=== PATIENT | female | born 1955 | race Caucasian/White ===

== ENCOUNTER 2018-09-21 09:43 | Outpatient (CLI) | payer OTHER | END 2018-09-21 09:44 | disposition home or self-care (01) | LOC: BICMAMMO 09:43 | PROVIDERS: ATTEND Family Medicine | DX: Z12.31 Encounter for screening mammogram for malignant neoplasm of breast (principal); Z80.3 Family history of malignant neoplasm of breast; Z85.828 Personal history of other malignant neoplasm of skin | CPT/HCPCS: 77063; 77067 ==

== ENCOUNTER 2019-09-28 08:37 | Outpatient (CLI) | payer OTHER ==
--- NOTE | 2019-09-28 09:08 | MMO ---
Bilateral MAMMO Bilat Screen [facility]. CLINICAL HISTORY: Patient is 64 years old and is seen for screening. The patient has a history of Skin cancer. VIEWS: The views performed were: bilateral craniocaudal with tomosynthesis and bilateral mediolateral oblique with tomosynthesis. FILMS COMPARED: The present examination has been compared to prior imaging studies performed at [facility] on 03/31/2017 and 09/21/2018, and at [facility] on 04/06/2012 and 05/04/2014. This study has been interpreted with the assistance of computer-aided detection. MAMMOGRAM FINDINGS: There are scattered fibroglandular densities. There are no suspicious masses, suspicious calcifications, or new areas of architectural distortion. IMPRESSION: THERE IS NO MAMMOGRAPHIC EVIDENCE OF MALIGNANCY. A ROUTINE FOLLOW-UP MAMMOGRAM IN 1 YEAR IS RECOMMENDED. THE RESULTS OF THIS EXAM WERE SENT TO THE PATIENT. ACR BI-RADS Category 1 - Negative MAMMOGRAPHY NOTE: 1. A negative mammogram report should not delay a biopsy if a dominant of clinically suspicious mass is present. 2. Approximately 10% to 15% of breast cancers are not detected by mammography. 3. Adenosis and dense breasts may obscure an underlying neoplasm. Reported by: EMELIA DICKENS MD Electonically Signed: [id number]
== END 2019-09-28 08:38 | disposition home or self-care (01) ==
LOC: BICMAMMO 08:37
PROVIDERS: ATTEND Family Medicine
DX: Z12.31 Encounter for screening mammogram for malignant neoplasm of breast (principal)
CPT/HCPCS: 77063; 77067

== ENCOUNTER 2020-08-03 07:17 | Outpatient (CLI) | payer MEDICARE, OTHER ==
[2020-08-03 16:11] LABS: #Basophils 0.1 thou/uL (0.0-0.2); #Eosinphils 0.1 thou/uL (0.0-0.7); #Lymphocytes 1.1 thou/uL (1.20-3.40); #Monocytes 0.4 thou/uL (0.11-0.59); #Neutrophils 4.1 thou/uL (1.40-6.50); %Eosinophils 1.3 % (0.0-10.0); %Lymphocytes 19.8 % (21.0-51.0); %Monocytes 6.2 % (0.0-10.0); %Neutrophils 71.8 % (42.0-75.0); Hemoglobin 15.8 g/dL (12.0-16.0); Mean Corpuscular HGB CONC 35.9 g/dL (32.0-36.0); Mean Corpuscular Hemoglobin 34.5 pg (27.0-31.0); Mean Corpuscular Volume 95.9 fL (78.0-98.0); Mean Platelet Volume 7.4 fL (7.4-10.4); Platelet Count 160 thou/uL (130-400); RBC Distribution Width 11.5 % (11.5-14.5); Red Blood Cell (RBC) Count 4.58 mill/uL (4.20-5.40); White Blood Cell (WBC) Count 5.7 thou/uL (4.8-10.8)
[2020-08-03 16:24] LABS: Anion Gap 17 mmol/L (10-20); BUN (Urea Nitrogen) 15 mg/dL (9.8-20.1); Calc. Creatinine Clearance 0 mL/min (70-130); Calcium 9.4 mg/dL (7.8-10.44); Carbon Dioxide 25 mmol/L (23-31); Chloride 102 mmol/L (98-107); Estimated GFR-MDRD 73; Glucose 83 mg/dL (80-115); Potassium 4.5 mmol/L (3.5-5.1); Sodium 139 mmol/L (136-145)
[2020-08-03 16:27] LABS: INR-International Normal Ratio 0.9; Prothrombin Time 11.6 sec (12.0-14.7)
[2020-08-04 14:56] LABS: SARS-CoV-2 MS2 Positive; SARS-CoV-2 N Gene Negative; SARS-CoV-2 S Gene Negative; SARS-CoV-2 by NAA Not Detected (NotDetected); SARS-CoV-2 orf1ab Negative
--- NOTE | 2020-08-05 13:09 | EKG ---
Test Reason : Blood Pressure : / mmHG Vent. Rate : 062 BPM Atrial Rate : 062 BPM P-R Int : 160 ms QRS Dur : 096 ms QT Int : 422 ms P-R-T Axes : 040 016 041 degrees QTc Int : 428 ms Normal sinus rhythm Normal ECG No previous ECGs available Confirmed by ROMEO STORM MD ([id number]) on 08/05/2020 1:09:22 PM Referred By: KALEB Confirmed By:ROMEO STORM MD
== END 2020-08-03 07:18 | disposition home or self-care (01) ==
LOC: LABBT 07:17
PROVIDERS: ATTEND Orthopaedic Surgery
DX: Z01.818 Encounter for other preprocedural examination (principal); Z20.828 Contact with and (suspected) exposure to other viral communicable diseases; M16.12 Unilateral primary osteoarthritis, left hip
CPT/HCPCS: 80048; 85025; 85610; 87081; 93005; U0003; 87635; 93010

== ENCOUNTER 2020-08-07 05:37 | Inpatient (IN) | payer MEDICARE ==
[2020-08-07] MEDS ORDERED: Vancomycin 1.5 GRAM/300 ML BAG ONE (06:09)
[2020-08-07] MEDS ORDERED: Tranexamic Acid 1,000 MG/10 ML VIAL ONE (06:10)
[2020-08-07] MEDS ORDERED: Sodium Chloride 0.9% 100 ML ONE (06:10)
[2020-08-07] MEDS ORDERED: Fentanyl 100 MCG/2 ML VIAL ONE ×3 (06:22→09:25)
[2020-08-07] MEDS ORDERED: Midazolam HCl 2 mg/2 ml Vial ONE ×2 (06:22→06:25)
[2020-08-07] MEDS ORDERED: diphenhydrAMINE 50 MG/ML VIAL IM PRN (07:30)
[2020-08-07] MEDS ORDERED: diphenhydrAMINE 50 MG/ML VIAL IVP PRN (07:30)
[2020-08-07] MEDS ORDERED: HYDROcodone/Acetaminophen 5/325 mg Tablet PO PRN ×2 (07:30)
[2020-08-07] MEDS ORDERED: Bupivacaine 0.25% 10 ML VIAL EPIDURAL PRN (07:30)
[2020-08-07] MEDS ORDERED: Promethazine HCl 25 MG SUPP PR PRN (07:30)
[2020-08-07] MEDS ORDERED: Ondansetron PF 4 MG/2 ML Vial IVP PRN ×2 (07:30→09:50)
[2020-08-07] MEDS ORDERED: Naloxone HCl 0.4 mg/ml Vial IVP PRN (07:30)
[2020-08-07] MEDS ORDERED: Promethazine HCl 25 MG/ML VIAL IM PRN ×3 (07:30→09:50)
[2020-08-07] MEDS ORDERED: Zolpidem Tartrate 5 MG TAB PO PRN ×2 (07:30→09:50)
[2020-08-07] MEDS ORDERED: traMADol HCl 50 MG TAB PO PRN ×2 (07:30→09:50)
[2020-08-07] MEDS ORDERED: Hydrocerin (Eucerin) Cream 120 gm Jar TOP PRN (07:30)
[2020-08-07] MEDS ORDERED: diphenhydrAMINE 25 MG CAP PO PRN ×2 (07:30→09:50)
[2020-08-07] MEDS ORDERED: Naloxone HCl 0.4 mg/ml Vial IV PRN (07:30)
[2020-08-07] MEDS ORDERED: Bupivacaine/Epinephrine 0.25% 30 ML VIAL ONE (07:36)
--- NOTE | 2020-08-07 07:43 | RAD ---
2 view chest: [08/07/2020] Comparison:None available HISTORY: Preoperative patient FINDINGS: Heart and mediastinal contours are grossly unremarkable. No pneumothorax or pleural fluid. No focal consolidation or alveolar edema. IMPRESSION: No acute findings.
[2020-08-07] MEDS ORDERED: Ondansetron HCl/PF 4 MG/2 ML Vial IVP PRN (09:31)
[2020-08-07] MEDS ORDERED: Promethazine HCl 25 MG/ML VIAL SLOW IVP PRN (09:31)
[2020-08-07] MEDS ORDERED: HYDROcodone/Acetaminophen 10/325 mg Tablet PO PRN ×2 (09:50)
[2020-08-07] MEDS ORDERED: Ketorolac Tromethamine 30 MG/ML VIAL IVP PRN (09:50)
[2020-08-07] MEDS ORDERED: Fentanyl 100 MCG/2 ML VIAL SLOW IVP PRN ×2 (09:50)
[2020-08-07] MEDS ORDERED: Acetaminophen 325 MG TAB PO PRN (09:50)
[2020-08-07] MEDS ORDERED: Bupivacaine 0.25% HCL 30 ML VIAL ONE (10:04)
--- NOTE | 2020-08-07 10:20 | RAD ---
LEFT HIP ONE VIEW: History: Post op. FINDINGS: Cross table lateral view of the hip shows a total hip prosthesis which appears to be in good position . IMPRESSION: Total hip prosthesis placement. POS: [facility]
--- NOTE | 2020-08-07 10:24 | RAD ---
AP PELVIS: History: Post op FINDINGS: A total hip prosthesis has been placed on the left. There is some air in the soft tissues. No fractur e. Moderate arthritic changes of the right hip are incidentally seen. IMPRESSION: Placement of left hip prosthesis. POS: [facility]
[2020-08-07] MEDS ORDERED: Aspirin 81 mg Enteric Coated Tablet PO SCH (11:00)
[2020-08-07] MEDS: Dextrose 5 %-0.45 % NaCl 1,000 ML IV SCH ×2 (11:30→22:35)
[2020-08-07] MEDS ORDERED: PHENYLEPHRINE-NS 100 MCG/ML 10 ML SYRINGE ONE (11:54)
[2020-08-07] MEDS ORDERED: Rocuronium Bromide 10 MG/ML (10ML VIAL) ONE (11:54)
[2020-08-07] MEDS ORDERED: Glycopyrrolate 0.2 MG/ML 5 ML SYRINGE ONE (11:54)
[2020-08-07] MEDS ORDERED: Lidocaine 1.5% w/Epi 1:200K 30 ML VIAL (Epid Use) ONE (11:54)
[2020-08-07] MEDS ORDERED: Dexamethasone 20 MG/5 ML VIAL ONE (11:54)
[2020-08-07] MEDS ORDERED: PROPOFOL 200 MG/20 ML VIAL ONE (11:54)
[2020-08-07] MEDS ORDERED: Ondansetron PF 4 MG/2 ML Vial ONE (11:54)
[2020-08-07] MEDS ORDERED: EPHEDRINE 25 MG/5 ML SYRINGE ONE (11:54)
[2020-08-07] MEDS ORDERED: Lidocaine 1% PF 5 ML VIAL ONE (11:54)
[2020-08-07] MEDS: Ketorolac Tromethamine 30 MG/ML VIAL IVP SCH ×3 (12:51→23:44)
[2020-08-07 13:08] VITALS: BMI 31.8
[2020-08-07] MEDS ORDERED: CEFAZOLIN 2 GM in Premix Bag 1 BAG IVPB SCH ×3 (14:00→23:59)
[2020-08-07] MEDS ORDERED: Lactated Ringer's 1,000 ML IV SCH (15:45)
--- NOTE | 2020-08-07 16:13 | OP ---
DATE OF PROCEDURE: 08/07/2020 PREOPERATIVE DIAGNOSIS: Left hip osteoarthritis. POSTOPERATIVE DIAGNOSIS: Left hip osteoarthritis. PROCEDURE PERFORMED: Left total hip arthroplasty. FREIGHT SERVICE INSPECTOR: Rosa Silveira PA-C. ANESTHESIA: Dr. Krishnamurthy. Patient received general endotracheal intubation with epidural. ESTIMATED BLOOD LOSS: Less than 200 mL. TOURNIQUET TIME: None. ANTIBIOTICS: Ancef 2 g, vancomycin 1.5 g, TXA 1 g. IMPLANTS: The patient had a Natalia Triathlon PSL 50 mm shell with a 36, 10 degree X3 poly liner, 6 mm poly, Accolate II 130 degree stem size 2, and a ceramic 36 mm Biolox Delta 0 mm femoral head. COMPLICATIONS: None. INDICATION: Ms. Corona is a 65-year-old female with left hip pain. The pain has been progressive. She has continued pain despite surgical intervention. She has a slight leg length discrepancy. I discussed with her the risks and benefits of left total hip arthroplasty to include pain, scar, bleeding, infection, damage to vital structures, decreased range of motion, rotational deformity, lengthening, loss of life or limb. I discussed the risks and benefits of surgery with patient. She elected to proceed. DESCRIPTION OF PROCEDURE: A time-out was performed designating the patient's left hip as the operative site, based on site, consents, and marking. After time-out, the patient's left hip was prepped and draped in sterile fashion. Patient was placed in lateral position with bony prominences well padded. After the time-out was performed, the patient had a lateral incision down through skin through the IT band, which was split. Gluteus medius and minimus were tenotomized, coming down to the capsule, capsule was t'd and removed. We dislocated the hip, cut the femoral head, trying to cut a low neck given the patient's leg length discrepancy. We then exposed the acetabulum, and did a 360-degree release, sequentially reamed starting at a 44 up to a 50, placed a 50 PSL cup and impacted it into place using an osteotome to take out some of the inferior aspect of the osteophytes of the hip to expose and decrease the risk of dislocation. We then placed our poly, externally rotated, impacted and positioned trial, then moved to the femur. We started using our kenyaie cutter, opening awl and broached up to a 2, trialed with a -5 and a 0. I felt like the 0 was just slightly long, but I felt like she had better stability, no impingement, I liked the overall alignment, therefore, I placed in the 0. We washed, placed a size 2 stem and impacted it into place, placed our ceramic head, reduced the hip. We closed the gluteus medius and minimus with #2 Vicryl, closed the IT band with #2 Vicryl, 2 Stratafix, 0 Stratafix, 2-0 Stratafix, and glue. The patient will be weightbearing as tolerated. She will be followed inhouse. Job ID: [id number]
[2020-08-07] MEDS ORDERED: Vancomycin 1.5 GRAM/300 ML BAG 1.5 GM in Premix Bag 1 BAG IVPB SCH (20:00)
[2020-08-07] MEDS: Aspirin 81 mg Enteric Coated Tablet PO SCH (21:07)
[2020-08-08] MEDS: fentaNYL Citrate/PF 500 MCG, Bupivacaine 10 ML in Sodium Chloride 0.9% 80 ML EPIDURAL SCH ×2 (02:22→17:37)
[2020-08-08 05:22] LABS: Hemoglobin 11.3 g/dL (12.0-16.0); Mean Corpuscular HGB CONC 35.5 g/dL (32.0-36.0); Mean Corpuscular Hemoglobin 33.8 pg (27.0-31.0); Mean Corpuscular Volume 95.2 fL (78.0-98.0); Mean Platelet Volume 6.9 fL (7.4-10.4); Platelet Count 144 thou/uL (130-400); RBC Distribution Width 11.4 % (11.5-14.5); Red Blood Cell (RBC) Count 3.36 mill/uL (4.20-5.40); White Blood Cell (WBC) Count 6.8 thou/uL (4.8-10.8)
[2020-08-08] MEDS: Ketorolac Tromethamine 30 MG/ML VIAL IVP SCH ×4 (05:30→23:29)
[2020-08-08] MEDS: Dextrose 5 %-0.45 % NaCl 1,000 ML IV SCH ×2 (05:32→14:24)
[2020-08-08] MEDS: Senokot S 8.6-50 MG TAB PO SCH ×2 (08:35→20:24)
[2020-08-08] MEDS: Multivitamin W/ Minerals 1 TAB PO SCH (08:35)
[2020-08-08] MEDS: Ferrous Gluconate 324 MG TAB PO SCH ×2 (08:35→17:47)
[2020-08-08] MEDS: Aspirin 81 mg Enteric Coated Tablet PO SCH ×2 (08:35→20:24)
[2020-08-09] MEDS: Dextrose 5 %-0.45 % NaCl 1,000 ML IV SCH ×2 (01:23→13:24)
[2020-08-09 05:21] LABS: Hemoglobin 10.6 g/dL (12.0-16.0); Mean Corpuscular HGB CONC 34.3 g/dL (32.0-36.0); Mean Corpuscular Hemoglobin 32.8 pg (27.0-31.0); Mean Corpuscular Volume 95.6 fL (78.0-98.0); Mean Platelet Volume 6.8 fL (7.4-10.4); Platelet Count 135 thou/uL (130-400); RBC Distribution Width 11.5 % (11.5-14.5); Red Blood Cell (RBC) Count 3.22 mill/uL (4.20-5.40); White Blood Cell (WBC) Count 5.7 thou/uL (4.8-10.8)
[2020-08-09] MEDS: Ketorolac Tromethamine 30 MG/ML VIAL IVP SCH (06:03)
[2020-08-09] MEDS: Ferrous Gluconate 324 MG TAB PO SCH (08:46)
[2020-08-09] MEDS: Aspirin 81 mg Enteric Coated Tablet PO SCH (08:46)
[2020-08-09] MEDS: Multivitamin W/ Minerals 1 TAB PO SCH (08:46)
[2020-08-09] MEDS: traMADol HCl 50 MG TAB PO PRN ×2 (08:46→14:02)
[2020-08-09] MEDS: Senokot S 8.6-50 MG TAB PO SCH (08:47)
[2020-08-09] MEDS ORDERED: FLU VACC QS2020-21(65YR UP)/PF 240 MCG/0.7 ML SYRINGE IM ONE (09:00)
[2020-08-09 12:40] VITALS: BP 108/69; TEMP 97.9
== END 2020-08-09 14:15 | disposition home or self-care (01) | DRG 470 ==
LOC: SDC 05:37 → SURG A 09:50
PROVIDERS: ADMIT Orthopaedic Surgery; ATTEND Orthopaedic Surgery
PROC: 0SRB04Z Replacement of Left Hip Joint with Ceramic on Polyethylene Synthetic Substitute, Open Approach (ICD-10-PCS; principal; 2020-08-07)
PROC: 3E0234Z Introduction of Serum, Toxoid and Vaccine into Muscle, Percutaneous Approach (ICD-10-PCS; 2020-08-09)
DX: M16.12 Unilateral primary osteoarthritis, left hip (principal); Z79.1 Long term (current) use of non-steroidal anti-inflammatories (NSAID); Z23 Encounter for immunization; M51.26 Other intervertebral disc displacement, lumbar region; M41.9 Scoliosis, unspecified
CPT/HCPCS: 36415; 71046; 72170; 85027; 86850; 86900; 86901; 90471; 90732; G0009; J0690; J1100; J1885; J2001; J2250; J2405; J2704; J3010; J3370; J3490; S0020

== ENCOUNTER 2020-10-03 13:37 | Outpatient (CLI) | payer MEDICARE ==
--- NOTE | 2020-10-03 14:48 | MMO ---
Bilateral MAMMO Bilat Screen [facility]. CLINICAL HISTORY: Patient is 65 years old and is seen for screening. The patient has the following family history of breast cancer: maternal grandmother, at age 40, malignant (generic). The patient has a history of Skin cancer. VIEWS: The views performed were: bilateral craniocaudal with tomosynthesis and bilateral mediolateral oblique with tomosynthesis. FILMS COMPARED: The present examination has been compared to prior imaging studies performed at [facility] on 03/31/2017, 09/21/2018 and 09/28/2019, and at [facility] on 05/04/2014. This study has been interpreted with the assistance of computer-aided detection. MAMMOGRAM FINDINGS: There are scattered fibroglandular densities. There are no suspicious masses, suspicious calcifications, or new areas of architectural distortion. IMPRESSION: THERE IS NO MAMMOGRAPHIC EVIDENCE OF MALIGNANCY. A ROUTINE FOLLOW-UP MAMMOGRAM IN 1 YEAR IS RECOMMENDED. THE RESULTS OF THIS EXAM WERE SENT TO THE PATIENT. ACR BI-RADS Category 1 - Negative MAMMOGRAPHY NOTE: 1. A negative mammogram report should not delay a biopsy if a dominant of clinically suspicious mass is present. 2. Approximately 10% to 15% of breast cancers are not detected by mammography. 3. Adenosis and dense breasts may obscure an underlying neoplasm. Reported by: CHRIS KEANE MD Electonically Signed: [id number]
== END 2020-10-03 13:38 | disposition home or self-care (01) ==
LOC: BICMAMMO 13:37
PROVIDERS: ATTEND Family Medicine
DX: Z12.31 Encounter for screening mammogram for malignant neoplasm of breast (principal); Z80.3 Family history of malignant neoplasm of breast; Z85.828 Personal history of other malignant neoplasm of skin
CPT/HCPCS: 77063; 77067

== ENCOUNTER 2021-07-08 14:37 | Outpatient (CLI) | payer MEDICARE | END 2021-07-08 14:38 | disposition home or self-care (01) | LOC: BICMAMMO 14:37 | PROVIDERS: ATTEND Family Medicine | DX: Z13.820 Encounter for screening for osteoporosis (principal); Z78.0 Asymptomatic menopausal state | CPT/HCPCS: 77080 ==

== ENCOUNTER 2022-01-24 09:54 | Outpatient (CLI) | payer OTHER | END 2022-01-24 09:55 | disposition home or self-care (01) | LOC: MRI 09:54 | PROVIDERS: ATTEND Neurological Surgery | DX: M51.26 Other intervertebral disc displacement, lumbar region (principal) | CPT/HCPCS: 72148 ==

== ENCOUNTER 2022-02-27 12:14 | Outpatient (CLI) | payer MEDICARE | END 2022-02-27 12:15 | disposition home or self-care (01) | LOC: CT 12:14 | PROVIDERS: ATTEND Neurological Surgery | DX: M47.26 Other spondylosis with radiculopathy, lumbar region (principal) | CPT/HCPCS: 72131 ==

== ENCOUNTER 2022-10-16 10:51 | Outpatient (CLI) | payer MEDICARE | END 2022-10-16 10:52 | disposition home or self-care (01) | LOC: BICMAMMO 10:51 | PROVIDERS: ATTEND Family Medicine | DX: Z12.31 Encounter for screening mammogram for malignant neoplasm of breast (principal); Z13.820 Encounter for screening for osteoporosis; N95.9 Unspecified menopausal and perimenopausal disorder; Z80.3 Family history of malignant neoplasm of breast; Z85.828 Personal history of other malignant neoplasm of skin | CPT/HCPCS: 77063; 77067; 77080 ==

== ENCOUNTER 2023-11-06 10:52 | Outpatient (CLI) | payer MEDICARE | END 2023-11-06 10:53 | disposition home or self-care (01) | LOC: BICMAMMO 10:52 | PROVIDERS: ATTEND Family Medicine | DX: Z12.31 Encounter for screening mammogram for malignant neoplasm of breast (principal) | CPT/HCPCS: 77063; 77067 ==